=== PATIENT | female | born 1945 | race Caucasian/White ===

== ENCOUNTER 2018-05-21 05:40 | Inpatient (IN) | payer BC, MEDICARE ==
[~2018-05-21] VITALS: Ht 157.5 cm; Wt 51.9 kg
[~2018-05-21 05:40] MED LIST: BACTRIM DS TAB1 EACH PO; CALTRATE 600 +1 EAC1 PO; DAILY MULTIPLE1 EACH PO; IRON18 MG PO; LOSARTAN POTASS50 MG PO; OMEPRAZOLE20 MG PO; PROLIA60 MG/1 ML SUB-Q; SIMVASTATIN40 MG PO
--- NOTE | 2018-05-21 09:59 | NUR ---
05/21/18 0958 Caryl Tan 0985-PATIENT ARRIVED TO PACU ON 6L MASK O2 SAT 100% ORAL AIRWAY TAKEN OUT BY BRADEN BOSS AND REPLACED TO HELP MAINTAIN AIRWAY. RR EVEN. INCISION TO ABDOMEN CDI LIEN DRAIN IN PLACE 0955-PATIENT REACTIVE TO VOICE OPENING EYES ORAL AIRWAY REMOVED. DENTURES PUT IN MOUTH. DENIES PAIN OR NAUSEA. DOZING TO SLEEP.
--- NOTE | 2018-05-21 10:04 | NUR ---
PT IS ALERT, ORIENTED AND SUPPORTED BY FAMILY. SHE IS A PLEASANT LADY, THAT SEEMS PREPARED, AND HAD FEW QUESTIONS. PT DID REQUEST PRAYER, WILL FOLLOW NEEDED.
[2018-05-21] MEDS ORDERED: IBUPROFEN600 MG PO (10:15)
[2018-05-21] MEDS ORDERED: MAPAP325 MG PO (10:16)
[2018-05-21] MEDS ORDERED: HYDROCODON-ACE1 EA10 PO (10:17)
--- NOTE | 2018-05-21 10:53 | NUR ---
ICED WATER AND JELLO GIVEN. PT TAKES SIPS OF WATER AND TOLERATES THAT WELL.
--- NOTE | 2018-05-21 11:54 | NUR ---
PT REPORTS VERY LITTLE IMPROVEMENT AFTER PRN. SECOND PRN GIVEN. PT DENIES NAUSEA.
--- NOTE | 2018-05-21 13:07 | NUR ---
PT UP TO BR W/RN STANDBY. PT AMBULATES CAUTIOUSLY. PT DENIES DIZZINESS. PT VOIDS 300 ML CLEAR YELLOW URINE AND IS BACK TO BED. PT IS QUITE PAINFUL GETTING BACK INTO BED. LIEN DRAIN EMPTIED FOR 10 ML SEROUS DRAINAGE. SCDS IN PLACE. IV PRN GIVEN FOR PAIN.
--- NOTE | 2018-05-21 13:48 | NUR ---
MORE ICED WATER GIVEN.
--- NOTE | 2018-05-21 15:15 | NUR ---
PT ARRIVED AT 1450 ON FLOOR. PT SO FAR HAS TOLERATED LIQUIDS WELL, PT IS AAO X4. PT AMBULATED TO BATHROOM. ALL LOBES ARE CLEAR, PT HAS A SLIGHT HEART MURMUR. ABD SOUNDS ARE PRESENT, PT IS PASSING GAS. PT STATED THAT ABD IS MODERATELY DISTENDED. ON EDEMA NOTED. NO NEW CONCERNS AT THIS TIME.
--- NOTE | 2018-05-21 16:19 | NUR ---
MED REC COMPLETE
--- NOTE | 2018-05-21 17:15 | NUR ---
PT OVERALL IS DOING WELL. PAIN IS WELL CONTROLLED UNTIL PT COUGHS. PT IS TOLERATING CRACKERS WELL. NO NEW CONCERNS AT THIS TIME.
--- NOTE | 2018-05-21 19:51 | NUR ---
HELPED PT GET TO HER BED FROM THE BATHROOM. PT VOMITED ON THE WAY BACK TO HER BED. HELPED PT GET CLEANED UP AND LET HER RN CHIKI KNOW. BEDSIDE TABLE AND CALL LIGHT WITHIN REACH.
--- NOTE | 2018-05-21 19:53 | NUR ---
PATIENT JUST HAD AN EPISODE OF NAUSEA AND VOMITING AFTER AMBULATING TO THE BATHROOM AND BACK TO BED. 4 MG IV ZOFRAN GIVEN AND 4 MF IV MORPINE FOR EPIGASTRIC AREA SURGICAL PAIN OF 6/10. PATIENT'S NAUSEA IMPROVED AT THIS TIME WILL RE-EVELAUATE PAIN.
--- NOTE | 2018-05-21 20:57 | NUR ---
PATIENT RESTING QUIETLY AND HAS NO MORE NAUSEA. PATIENT'S PAIN IS 4/10 AT THIS TIME AND DOES NOT WANT ANY MORE PAIN MEDICATION AT THIS TIME. PATIENT'S CALL LIGHT IS IN REACH AND WILL CALL IF SHE NEEDS ANYTHING.
--- NOTE | 2018-05-21 22:00 | OR ---
[facility] [address], [place] [address] Signed DATE OF OPERATION: 05/21/2018 SURGEON: Jinny Rios MD PREOPERATIVE DIAGNOSES: 1. Incisional hernia, upper abdomen. 2. Persistent anemia, history of duodenal ulcer. 3. History of complex polyp excised from colon. POSTOPERATIVE DIAGNOSES: 1. Incisional hernia with fascial defect, 6 cm. 2. Normal upper endoscopy. PROCEDURES: 1. Upper endoscopy. 2. Incisional hernia repair. 3. Implantation of Prolene mesh underlay technique (properitoneal space). ANESTHESIA: General endotracheal, Lesley Karlos, CREATIVE ASSISTANT and local 30 mL of 0.25% Marcaine with epinephrine. INDICATION: This 72-year-old white woman is a patient of Dr. Urbano Lozano in [place]. She underwent a peptic ulcer operation at [facility] in the past for a perforation several years ago. This resulted in an incisional hernia. She is known to me from the recent past of having undergone colonoscopy, found to have a complex polyp of the left colon which was excised and was benign. She has had chronic anemia for reasons that are unclear. She has no overt blood per rectum or hematemesis. No abdominal pain other than the incisional hernia itself. She is admitted at this time to undergo repair of the incisional hernia, but additionally I have reviewed with her daughter who attends to her that upper endoscopy additionally performed to assess for peptic disease, possibly accounting for chronic anemia. The risks of bleeding, infection, and perforation related to that procedure as well as the risks of bleeding, infection, and recurrence related to hernia were reviewed in detail and well understood. FINDINGS: Electronically Signed By: JINNY RIOS MD 05/21/18 7786 PATIENT NAME: FABIO JOSE OPERATIVE REPORT DATE OF : 45 REPORT #: [id number] PHYSICIAN: JINNY RIOS MD PCP: Urbano Lozano DO REPORT IS CONFIDENTIAL AND NOT TO BE RELEASED WITHOUT AUTHORIZATION [facility] [address] [place], [place] [address] Signed Incisional hernia defect was approximately 6 cm. There was no sign of incarcerated viscus. Internal examination showed no sign of ascites or carcinomatosis. Prolene mesh was implanted in the properitoneal space with the peritoneum as a biologic barrier to intraabdominal viscera. Interrupted Prolene sutures were used with Prolene pledgets providing secure repair. A drain was placed. On upper endoscopy, she showed no sign of esophageal gastric or duodenal pathology to account for anemia. DESCRIPTION OF PROCEDURE: The patient was brought to the operating room and given a general endotracheal anesthetic. Preoperative antibiotic Ancef was given. Mindful of her anemia which was more prominent on her preoperative labs with hematocrit of 26.7 with chronic anemia, it occurred to me that perhaps upper endoscopy might be beneficial, given her original incision for development of the incisional hernia was related to peptic disease (perforated ulcer). Review of records had shown no upper endoscopy by me or in our institution and I did speak with her daughter since the patient was anesthetized and reviewed the possible benefit of upper endoscopy at this time. She agreed fully. As the endoscopy equipment was not fully functional at the outset of the anesthetic, we proceeded directly to operative repair of the hernia. The abdomen was prepared with a chlorhexidine solution and draped sterilely. An incision was made in the epigastric area directly over the hernia defect area. Dissection carried through the subcutaneous tissue with blunt electrocautery dissection. Well-formed hernia sac was noted. There was no sign of incarcerated viscus. The surrounding soft tissue was freed with blunt and electrocautery dissection. The fascial defect measured approximately 6 cm in diameter. The hernia sac was freed from the overlying fascia with blunt electrocautery dissection. In the upper portion, the posterior fascial layer was well fused with hernia sac and could not be distinguished from it. Therefore, the posterior fascial layer was as well. Ultimately, a preperitoneal space was developed at least 4 cm circumferential to the defect itself. The defects in the hernia sac were secured with 2-0 Vicryl suture. Internal examination showed no sign of ascites or carcinomatosis. By this point, the hernia sac was in continuity and provided good biologic barrier of implanted mesh from the intraabdominal viscera. A 6 inch x 6 inch piece of Prolene mesh was cut to an elliptical configuration and secured in the properitoneal space with interrupted 0 Prolene sutures with Prolene pledgets. Complete reapposition of the fascial layer was not possible, but the space was minimized. Through a separate stab incision on the right side, a 7 mm flat Dat drain was placed. Pelon's layer was reapproximated with interrupted 2-0 Vicryl and skin Electronically Signed By: JINNY RIOS MD 05/21/18 0229 PATIENT NAME: FABIO JOSE OPERATIVE REPORT DATE OF : 45 REPORT #: [id number] PHYSICIAN: JINNY RIOS MD PCP: Urbano Lozano DO REPORT IS CONFIDENTIAL AND NOT TO BE RELEASED WITHOUT AUTHORIZATION [address] [address] Signed closed with running subcuticular 3-0 Vicryl. Steri-Strips were applied as was a Mepilex silver sponge dressing and an OpSite. At this point, additional endoscopy equipment was obtained and a bite block was placed while the patient was in the supine position. The Olympus video upper endoscope was passed in the hypopharynx and into the esophagus without problem. The esophagus, stomach, and duodenum were thoroughly examined showing no evidence of ulceration, neoplasm, inflammation or other abnormality. Retroflexed view was normal as well. The scope was withdrawn carefully through the esophagus showing no sign of varices or other abnormality. The patient was ultimately extubated and transferred to recovery room in good condition having suffered no complication. Jinny Rios MD JM/MODL /[id number] cc: Urbano Lozano DO Copies: Urbano Lozano DO ~ Electronically Signed By: JINNY RIOS MD 05/21/18 2200 PATIENT NAME: FABIO JOSE OPERATIVE REPORT DATE OF : 45 REPORT #: [id number] PHYSICIAN: JINNY RIOS MD PCP: Urbano Lozano DO REPORT IS CONFIDENTIAL AND NOT TO BE RELEASED WITHOUT AUTHORIZATION
--- NOTE | 2018-05-21 22:43 | NUR ---
PATIENT NOW C/O 6/10 PAIN AND WAS GIVEN 6MG OF IV MS. NO NAUSEA AT THIS TIME. WILL RE-EVALUATE PAIN. PATIENT'S CALL LIGHT IN REACH. PATIENT FEELING HUNGRY AND REQUESTED SOME VANILLA PUDDING WHICH WAS GIVEN.
--- NOTE | 2018-05-22 00:44 | NUR ---
PATIENT STARTED TO HAVE NAUSEA AND VOMITING AGAIN AFTER GETTING UP TO THE RESTROOM AND THIS INCREASED HER PAIN BACK TO 6/10. 4MG IV ZOFRAN GIVEN AND 6MG IV MORPHINE GIVEN. PATIENT'S NAUSEA IS GONE AND WILL HAVE TO REASSESS PAIN. CALL LIGHT IN REACH.
--- NOTE | 2018-05-22 02:09 | NUR ---
VITALS AND I&OS DONE AND CHARTED. FRESH WATER GIVEN. BEDSIDE TABLE AND CALL LIGHT WITHIN REACH.
--- NOTE | 2018-05-22 03:28 | NUR ---
PATIENT STARTED HAVING 6/10 ABD/EPIGASTRIC AREA PAIN AGAIN AND WAS GIVEN 6MG IV MS. NEW IV BAG WAS HUNG AND RATE OF LR CONTINUES AT 85MLS AN. IV FLUSHES WELL AND IS WNL. ABD/EPIGASTRIC DRESSINGS ARE CDI. LIEN DRAIN WAS DRAINED FOR 75MLS. PATIENT SAYS SHE HAS SLEPT INTERMITTENTLY. CALL LIGHT IN REACH.
--- NOTE | 2018-05-22 04:12 | NUR ---
PATIENT RESTING QUIETLY, EYES CLOSED, RESPIRATIONS EVEN AND REGULAR, PATIENT REMAINS ON 2L/NC AND IS AT 98% WITH A HR ON THE MONITOR OF 68. CALL LIGHT IN REACH. PATIENT SHOWING NO SIGNS OF DISCOMFORT AT THIS TIME.
--- NOTE | 2018-05-22 06:27 | NUR ---
VITALS AND I&OS DONE AND CHARTED. BEDSIDE TABLE AND CALL LIGHT WITHIN REACH.
--- NOTE | 2018-05-22 06:37 | NUR ---
PATIENT MEDICATED X6 TONIGHT WITH IV MORPHINE WHICH CONTROLS HER PAIN FAIRLY WELL UNTIL THE NEXT DOSE IS NEEDED. PATIENT HAD 3 EPISODES OF NAUSEA AND VOMITING THIS SHIFT AND TWICE THIS WAS RELIEVED WITH 4MG IV ZOFRAN. THE LATEST EPISODE OF N/V RESOLVED ON IT'S OWN. EACH EPISODE COINCIDED WITH PATIENT GETTING UP TO USE THE BATHROOM. PATIENT'S ABD/EPIGASTRIC AREA DRESSING IS CDI. LIEN DRAIN PUTTING OUT SANGUINOUS DRAINAGE. PATIENT IS PASSING GAS AND BOWEL TONES ARE PRESENT. LUNGS ARE CLEAR. IV CONTINUES TO INFUSE LR AT 85MLS/HR AND SITE IS WITHIN NORMAL LIMITS.
--- NOTE | 2018-05-22 08:00 | NUR ---
RECEIVED REPORT AT 0700, FOUND PT IN BED SLEEPING. PT HAD N/V AND LOW URINE OUTPUT OVERNIGHT. WILL CONTINUE TO MONITOR FOR NOW.
--- NOTE | 2018-05-22 08:35 | NUR ---
Assited REJI Angelo in pulling patient up in bed and setting her up for breakfast. Patient became very nauseas and was unable to eat. Patient sat for several minutes with emesis bag before attempting to walk with this NATIONAL COVERAGE SPECIALIST to br. Patient will use call light when ready
--- NOTE | 2018-05-22 09:12 | NUR ---
ASSTED PATIENT BACK TO BED. PATIENT HAD 2 EPISODES OF VOMITING. @200 MIL. ALSO 200 URINE OUTPUT. PATIENT HAS VERY STRONG TREMOR EPISODES WELL. THIS SAND BOBBER HAD TO HOLD HER MOUTH RINSE CUP STEADY SHE USED IT. [facility]
--- NOTE | 2018-05-22 10:00 | NUR ---
AT 924 PT WALKED TO BATHROOM, PT HAD SOME EMESIS PINK IN COLOR AGAIN. PT HOWEVER HAS NOT BEEN ABLE TO TOLERATE ANY FOOD. ABD IS NOW MODERATLY DISTENDED AND FIRMER THAN YESTERDAY. DRESSING IS C/D/I. PT IS BELCHING AND BOWEL TONES ARE NOW HYPOACTIVE. MD WINKLER WAS CALLED AT 924 AND I LEFT A MESSAGE. HE CALLED BACK AT 929 AND AN ORDER TO A KUB TOTAL X-RAY WAS GIVEN AND PT AT THIS TIME IS NPO. WILL AWAIT RESULTS. OTHERWISE NO NEW PROBLEMS NOTED.
--- NOTE | 2018-05-22 12:00 | NUR ---
PT AT THIS TIME IS DRINKING SOME VEGGIE BROTH. PAIN AND N/V ARE NOT AN ISSUE AT THIS TIME.
--- NOTE | 2018-05-22 13:45 | NUR ---
PATIENT SLEEPING, AWOKE UPON HEARING HER NAMES CALLED AT BEDSIDE. FAMILY MEMBER IN ROOM. PATIENT FINISHED CUP OF BROTH. VITALS AND I/OS CHARTED. CALL LIGHT IN REACH
--- NOTE | 2018-05-22 14:00 | NUR ---
PT OVERALL IS FEELING BETTER AT THIS TIME. EXECUTIVE VICE PRESIDENT AND CHIEF OPERATING OFFICER TO AMBULATE PT IN HALLWAY SHORTLY.
--- NOTE | 2018-05-22 14:29 | NUR ---
PT EXPRESS DISAPPOINTMENT WITH STILL BEING HERE. TRYING TO STAY POSITIVE. BUILDING UP SOME COURAGE TO MOVE FORWARD, IN SPITE OF SET BACKS. PT REQUESTED PRAYER, WILL FOLLOW NEEDED
--- NOTE | 2018-05-22 14:45 | NUR ---
PATIENT AMBULATED SEGOVIA TO NURSES STATION AND BACK TO ROOM WITH REJI LADD AND THIS GSE MECHANIC.
--- NOTE | 2018-05-22 15:11 | NUR ---
PT AMBULATED FROM ROOM TO NURSES STATION AND BACK. PT TOLERATED IT WELL. NON N/V AND PAIN IS TOLERABLE. PT IS BACK IN BED.
--- NOTE | 2018-05-22 17:01 | NUR ---
STAND BY ASSIST TO BR. PATIENT WILL CALL WHEN READY
--- NOTE | 2018-05-22 17:37 | NUR ---
AT START OF SHIFT PT HAD PAIN AND MUCH N/V. PT WAS ALSO NOT ABLE TO TAKE ANY PO FOODS AND LIQUIDS. ABD WAS MORE DISTENDED AND BOWEL TONES WERE HYPOACTIVE. MD RIOS WAS CALLED AND KBU WAS DONE. GAS WAS NOTED ON X-RAY. PT ALSO WALKED IN THE HALLWAY AND DID WELL. BOWEL TONES AT THIS TIME ARE NORMALLY ACTIVE EXCEPT IN RUQ. THERE THEY ARE STILL HYPOACTIVE. PT OVERALL IS FEELING MUCH BETTER AT THIS TIME.
--- NOTE | 2018-05-22 19:45 | NUR ---
PATIENT RESTING QUIETLY ON HER RIGHT SIDE AT THIS TIME. RECEIVED SHIFT REPORT FROM DAY RN. PATIENT'S RESPIRATION REGULAR AND EVEN AND CALL LIGHT IN REACH.
--- NOTE | 2018-05-22 20:50 | NUR ---
VITALS AND I&OS DONE AND CHARTED. HELPED PT TO THE BATHROOM AND BACK TO BED. BEDSIDE TABLE AND CALL LIGHT WITHIN REACH.
--- NOTE | 2018-05-22 21:30 | NUR ---
PATIENT ON 2L/NC FOR DESATURATING WHEN SHE GOES TO SLEEP. PATIENT HAS NOT BEEN HAVING THE NAUSEA SHE WAS HAVING EARLIER IN THE DAY, BUT CONTINUES TO HAVE ABD/EPIGASTRIC AREA PAIN 6/10 AND A HEADACHE. 6MG IV MS GIVEN. PATIENT'S BOWEL TONES ACTIVE, BUT HYPOACTIVE IN THE RUQ. LUNGS CLEAR. PATIENT WATCHING TV AND CALL LIGHT IS IN REACH. ABD DRESSING AND LIEN SITE CDI.
--- NOTE | 2018-05-22 21:52 | NUR ---
CHARGE NURSE ROUNDING NOTE: PT IN BED, NO C/O PAIN, IVF INFUSING W/O PROBLEMS FLUIDS AND CALL LIGHT WITHING HAND REACH, NO C/O N/V
--- NOTE | 2018-05-22 23:40 | NUR ---
PATIENT JUST UP TO THE BATHROOM WITH 1PSBA. PATIENT BACK TO BED THIS TIME AND PAIN WAS UNDER CONTROL AT 3/10 AND NO NAUSEA THIS TIME. PATIENT IS GOING TO TRY AND GET SOME MORE SLEEP. CALL LIGHT IN REACH.
--- NOTE | 2018-05-23 00:41 | NUR ---
PATIENT RESTING QUIETLY SUPINE IN BED, EYES CLOSED RESPIRATIONS EVEN AND REGULAR, 02 SATS ARE 99% ON 2LNC WITH A HR=70 ON THE PULSE OX MONITOR. CALL LIGHT IN REACH.
--- NOTE | 2018-05-23 02:24 | NUR ---
PATIENT UP TO THE BATHROOM AND VOIDED 400MLS. PATIENT FEELS LIKE SHE NEEDS TO HAVE A BM, BUT NO RESULT FROM MOM SO FAR. PATIENT'S ABD DOES LOOK A BIT MORE DISTENDED AND PATIENT THINKS IT IS WELL BOWEL TONES REMAIN ACTIVE WITH THE RUQ BEING HYPOACTIVE. PATIENT IS EXPERIANCING A SORE THROAT WELL. ABD/EPIGASTRIC PAIN 6/10 ON RETURNING TO BED AND 6MG IV MS GIVEN. CEPACOL ROOSEVELT. ALSO ORDERED FOR SCRATCHY THROAT. PATIENT IS GOING TO TRY AND GET SOME SLEEP. CALL LIGHT IN REACH.
--- NOTE | 2018-05-23 05:38 | NUR ---
PATIENT HAS BEEN UP TO THE RESTROOM MULTIPLE TIMES THIS SHIFT TO USE THE BATHROOM AND AMBULATES FINE WITH ONE PERSON STANDING BY. LR STILL RUNNING AT 85MLS/HR. LUNGS CLEAR, BOWEL TONES ACTIVE, BUT HYPOACTIVE IN THE RUQ. NO BM THIS SHIFT AND ABD IS MORE DISTENDED NOW THAN AT THE BEGINING OF THE SHIFT. PATIENT HAS ONLY HAD TO HAVE IV MORPHINE A COUPLE TIMES THIS SHIFT. VS ARE STABLE. ABD DRESSING CLEAN DRY AND INTACT. PATIENT HAD NO NAUSEA OR VOMITING ON THIS SHIFT.
--- NOTE | 2018-05-23 08:04 | NUR ---
patient report received from Fareed MENDOZA, she is resting with eyes closed. She woke easily to name and sat up in bed for breakfast. patient has no c/o nausea and pain level is currently at a 5 with movement. patient requesting pain medication at this time. patient placed on ra at this time.
--- NOTE | 2018-05-23 08:08 | NUR ---
PATIENT GIVEN 1 NORCO PO FOR C/O 5/10 ABDOMINAL PAIN, DRESSING TO ABDOMEN IS CDI WITH MEPILEX AND OPSITE, PATIENT INSTRUCTED ON HOW TO USE AN IS AT THIS TIME AND WILL AMBULATE AFTER FINISHING BREAKFAST.
--- NOTE | 2018-05-23 10:17 | NUR ---
pt was resting in bed with call light in reach, vitals taken and pt is now walking in hallway with Nurse Esme.
--- NOTE | 2018-05-23 10:33 | NUR ---
IV IN THE RIGHT HAND INFILTRATED, IV DC'D TIP INTACT. DOCTOR BLANCA IN THE ROOM TO SEE THE PATIENT AT THIS TIME.
--- NOTE | 2018-05-23 10:44 | NUR ---
#20 STARTED IN THE LEFT FOREARM AT THIS TIME
--- NOTE | 2018-05-23 14:30 | NUR ---
PATIENT TAKEN TO CT SCAN FOR PICTURES OF ABDOMEN AND PELVIS
--- NOTE | 2018-05-23 14:50 | NUR ---
pt has returned from CT, she used the restroom, and returned to bed. pt is resting safely with call light in reach.
--- NOTE | 2018-05-23 17:17 | NUR ---
PATIENT ASSISTED UP TO THE BATHROOM, VOIDED CLEAR YELLOW URINE, PATIENT IS STEADY ON HER FEET. SHE REMAINS NPO. CT RESULTS GIVEN TO DOCTOR RIOS AT THIS TIME.
--- NOTE | 2018-05-23 17:36 | NUR ---
pt is resting in bed safely with call light in reach and asked for swabs for mouth.
--- NOTE | 2018-05-23 19:28 | NUR ---
suppository placed at this time after patient voided clear yellow urine. patient steady on her feet.
--- NOTE | 2018-05-23 21:34 | NUR ---
IN BED, AWAKE, ALERT, NO C/O PAIN, NO N/V, NPO, CALL LIGHT WITHING HANDS REACH.
--- NOTE | 2018-05-23 22:00 | NUR ---
PATIENT HAD NO RESULTS FROM HER SUPPOSITORY. 2X 1500ML WARM SOAP WATER ENEMAS WERE GIVEN WITH RETURN OF A FAIR AMOUNT OF MUCUS, DARK BROWN FOUL SMELLING LIQUID, AND A FAIR AMOUNT OF SMALL FORMED PIECES OF DARK BROWN STOOL. PATIENT'S ABD IS FEELING BETTER. INFORMED AND HE GAVE AN ORDER FOR PATIENT TO BE STARTED BACK ON CLEAR LIQUIDS. PATIENT GIVEN NEW ICE WATER AND IS TRYING TO GO TO SLEEP. CALL LIGHT IN REACH.
--- NOTE | 2018-05-23 22:48 | NUR ---
PATIENT HAD HER BED CHUK CHANGED AFTER HAVE A SMALL AMOUNT OF MUCUS IN THE BED FROM HER RECENT ENEMA. PATIENT SETTLING IN FOR THE NIGHT TO TRY AND GET SOME SLEEP. CALL LIGHT IN REACH.
--- NOTE | 2018-05-23 23:46 | NUR ---
PATIENT UP TO THE BATHROOM TO VOID AND THEN BACK TO BED AFTER VOIDING 600MLS AN THE BATHROOM, PATIENT HAS DRANK 100MLS OF WATER AND SAYS HER ABD FEELS MUCH BETTER. PATIENT GOING TO TRY AND GET SOME MORE SLEEP. CALL LIGHT IN REACH.
--- NOTE | 2018-05-24 00:54 | NUR ---
PATIENT RESTING QUIETLY ON HER LEFT SIDE, EYES CLOSED AND RESPIRATIONS EVEN AND REGULAR. CALL LIGHT IN REACH.
--- NOTE | 2018-05-24 02:21 | NUR ---
PATIENT USED HER CALL LIGHT AND WAS ESCOHRTED TO THE BATHROOM AND BACK TO BED. PATIENT HAS NEEDED NOTHING FOR PAIN AND HAS HAD NO NAUSEA. VOIDED 650 OF URINE, AND IS GOING TO TRY AND GET SOME MORE SLEEP. CALL LIGHT IN REACH.
--- NOTE | 2018-05-24 03:07 | NUR ---
PATIENT RESTING QUIETLY, EYES CLOSED, RESPIRATIONS EVEN AND REGULAR, POSITIONED ON HER RT SIDE. CALL LIGHT IS IN REACH.
--- NOTE | 2018-05-24 04:31 | NUR ---
PATIENT RESTING QUIETLY ON HER LEFT SIDE RESPIRATIONS REGULAR, EYES CLOSED, CALL LIGHT IS IN REACH.
--- NOTE | 2018-05-24 06:39 | NUR ---
PATIENT HAD 2 1500ML SOAP WATER ENEMAS AFTER NO RESULT WITH SUPPOSITORY. PATIETN HAD SOME FORMED STOOL RETURN WITH THESE ENEMAS. ABD NOT DISTENDED NOW AND PATIENT HAS BEEN MORE COMFORTABLE. RUQ STILL HYPOACTIVE WITH ACTIVEBOWEL TONES THE OTHER 3 QUADS. LUNGS CLEAR BUT ON 2 LITERS NC DUE TO DESATING WHEN ASLEEP. IV 85ML/HR LR AND IV WNL. ON CLEAR LIQUIDS AT THIS TIME AND TOLERATING THAT WELL. PATIENT WALKING TO THE BATHROOM WITH STRANDBY ASSIST. PATIENT SLEPT FAIRLY WELL AND HAD NO NEED FOR PAIN MEDICATION AND NO NAUSEA OR VOMITING THIS SHIFT. MINIMAL SEROSANGUINOUS DRAINAGE FROM LIEN AND DRESSING IS CDI.
--- NOTE | 2018-05-24 09:15 | NUR ---
PT AWAKE SITTING UP IN BED, FINISHED ALL OF CLEAR LIQUIDS ON TRAY, FRANK WELL. PT DENIES NAUSEA OR ANY PAIN THIS AM. REPORTS STILL FEELING SLIGHTLY BLOATED BUT "GOOD" OTHERWISE. REPORTS POSITIVE FLATUS THIS AM. ABD DRESSED WITH MEPILEX AND OPSITE, CDI. LIEN DRAIN IN PLACE AND SECURE, SMALL AMOUNT OF SEROSANGUINOUS OUTPUT. PT SBA TO RESTROOM AND BACK TO BED. ALERT AND ORIENTED. CALL LIGHT WITHIN REACH.
--- NOTE | 2018-05-24 11:02 | NUR ---
pateint needed to use restroom took her to the bathroom, and helped her back to bed put back ion her SCD's
--- NOTE | 2018-05-24 12:10 | NUR ---
PT FRANK CLEAR TRAY FOR LUNCH. SBA TO RESTROOM. PT DENIES PAIN OR NAUSEA. DENIES NEEDS OR CONCERNS. CALL LIGHT WITHIN REACH.
--- NOTE | 2018-05-24 13:20 | NUR ---
DRESSINGS AND LIEN DRAIN REMOVED BY DR. RIOS. STERI STRIPS IN PLACE ON HORIZONTAL UPPER ABD INCISION. NO DRAINAGE OR REDNESS NOTED, INCISION WELL APPROXIMATED. ORDERS TO ADVANCE TO FULL LIQUID. PT DENIES PAIN OR OTHER CONCERNS AT THIS TIME. CALL LIGHT WITHIN REACH.
--- NOTE | 2018-05-24 15:20 | NUR ---
PT SITTING UP IN BED WATCHING TV. SBA TO RESTROOM AND BACK. DENIES NEEDS OR CONCERNS. CALL LIGHT WITHIN REACH.
--- NOTE | 2018-05-24 17:15 | NUR ---
PT HAD FULL LIQUIDS FOR DINNER, FRANK WELL. DENIES NAUSEA OR OTHER CONCERNS.
--- NOTE | 2018-05-24 22:56 | NUR ---
PT ASSESSMENT COMPLETE. PT DENIES PAIN, NAUSEA, SOB. STERISTRIPS TO ABD D/I. SCAB TO RLQ. BT'S HYPERACTIVE. ENEMA ADMINISTERED ORDERED. CLEAR WATER WITH MINIMAL SMALL SIZED CHUNKS OF STOOL RETURNED. PT DENIES OTHER NEEDS. ORIENTED TO CALL LIGHT SYSTEM. PT AGREES TO USE FOR NEEDS. CALL LIGHT WITHIN REACH.
--- NOTE | 2018-05-24 23:11 | NUR ---
CHARGE NURSE ERIK NOTE: PT IN BED, RESTING, EYES COSED, ROOM AIR NO C/O PAIN, FLUIDS AND CALL LIGHT WITHING HANDS REACH
--- NOTE | 2018-05-24 23:42 | NUR ---
BEDSIDE REPORT RECEIVED FROM OFFGOING RN. PT RESTING IN BED, APPEARS TO BE SLEEPING. PT DOES NOT WAKE WHILE INFORMATION SERVICES ASSISTANT AND OTHER RN IN DOORWAY. CALL LIGHT WITHIN PT REACH.
--- NOTE | 2018-05-25 00:30 | NUR ---
PT UP TO USE BEDSIDE COMMODE. STATES THAT SHE WOULD LIKE TO SIT ON COMMODE FOR AWHILE. PT AGREES TO USE CALL LIGHT WHEN SHE IS FINISHED. CALL LIGHT IN PT'S HAND. PT DENIES FURTHER NEEDS AT THIS TIME.
--- NOTE | 2018-05-25 04:59 | NUR ---
PT ASSESSMENT COMPLETE. RESTING IN BED WITH EYES CLOSED, WAKES EASILY. PT DENIES PAIN, NAUSEA, OR SOB AT THIS TIME. BT'S ACTIVE, ABD TENDER TO TOUCH. STERI STRIPS TO INCISION INTACT, DRY. PT DENIES NEEDS AT THIS TIME. CALL LIGHT WITHIN REACH.
--- NOTE | 2018-05-25 06:25 | NUR ---
PT RESTING IN BED WITH EYES CLOSED.WAKES EASILY. PT REQUESTS TO USE THE BATHROOM, ASSISTED 1 PA. PT TOLERATED WELL. REPORTS INCREASED ABD PAIN WITH MOVEMENT. RATES 3/10. PT ALSO REPORTS HEADACHE, RATES 5/10. PRN TYLENOL TO BE ADMINISTERED PT DENIES OTHER NEEDS AT THIS TIME. CALL LIGHT WITHIN REACH.
--- NOTE | 2018-05-25 08:30 | NUR ---
PT SITTING UP IN BED EATING FULL LIQUID BREAKFAST, FRANK WELL. PT DENIES PAIN OR NAUSEA THIS AM. STERI STRIPS IN PLACE, INCISIONS WELL APPROXIMATED, CLEAN AND DRY. ACTIVE BOWEL TONES, PT REPORTS POSITIVE FLATUS. IV INFUSING WNL. ALERT AND ORIENTED. CALL LIGHT WITHIN REACH.
--- NOTE | 2018-05-25 10:00 | NUR ---
PATIENT WOULD LIKE TO SHOWER. SHOWER SET UP FOR USE. RN NOTIFIED TO SL PATIENTS IV SITE.
--- NOTE | 2018-05-25 10:15 | NUR ---
PT SL AND SET UP FOR SHOWER. PT SHOWERING INDEPENDENTLY. FAMILY PRESENT IN ROOM.
--- NOTE | 2018-05-25 10:20 | NUR ---
CALLED DAUGHTER DARREN PER ORDER CALLED TO UPDATE ON PLANS FOR DISCHARGE. DAUGHTER DID NOT ANSWER. LEFT MESSAGE " RN AT [facility], CALLING TO DISCUSSED PLANS TO DISCHARGE, PLEASE GIVE UP A CALL BACK AT [phone], THANK YOU"
--- NOTE | 2018-05-25 10:45 | NUR ---
PT SHOWERED AND DRESSED INDPENDENTLY. NOW AMB HALLWAY WITH FAMILY, FRANK WELL. PT DOES NOT REQUIRE ANY AMBULATORY ASSISTANCE.
--- NOTE | 2018-05-25 12:30 | NUR ---
PT HAD CHICKEN AND SALAD FOR LUNCH. FRANK WELL SO FAR. DENIES PAIN OR NAUSEA. FAMILY AT BEDSIDE. CALL LIGHT WITHIN REACH.
--- NOTE | 2018-05-25 14:35 | NUR ---
PT DRESSED AND SITTING IN CHAIR-ALERT AND ORIENTED. SHE IS READY FOR DC, HER FAMILY WITH HER WELL. THANKED ME FOR VISITING, EXTENDED A BLESSING AND WILL FOLLOW NEEDED
--- NOTE | 2018-05-25 14:50 | NUR ---
PT AMB HALLWAY WITH FAMILY, FRANK WELL. PT BACK TO BED AT THIS TIME. DENIES NEEDS OR CONCERNS. CALL LIGHT WITHIN REACH.
[2018-05-25] MEDS ORDERED: PEPCID20 MG PO (15:26)
--- NOTE | 2018-05-27 10:38 | DS ---
[facility] [address], [place] [address] Signed ADMISSION DATE: 05/21/2018 DISCHARGE DATE: 05/25/2018 REASON FOR ADMISSION: A 72-year-old white woman, who is a patient of Dr. Urbano Lozano, in [place], underwent a peptic ulcer operation at [facility] in the past for perforated duodenal ulcer a number of years ago. This resulted in incisional hernia. She is known to me from the recent past time and undergone colonoscopy and found to have a complex polyp of the left colon which was excised and which was benign. She has had chronic anemia for uncertain reasons for quite some time. She has had no overt blood per rectum, hematemesis, or other issue. She is admitted at this time to undergo repair of an incisional hernia from her prior operation. PERTINENT PHYSICAL EXAMINATION: GENERAL: Pleasant white woman, looks to be in no acute distress. Trachea is midline. CHEST: Clear. HEART: Regular without murmur. ABDOMEN: Flat and soft. There is a midline hernia cephalad to the umbilicus in the previous upper midline incision. There is no palpable mass. EXTREMITIES: Show no clubbing, cyanosis, or edema. HOSPITAL COURSE: The patient underwent incisional hernia repair of the upper abdomen. In addition, she underwent upper endoscopy as she was noted to be anemic with a hematocrit of 27. The upper endoscopy is normal. Implantation of Prolene mesh in an Underlay technique was undertaken and a drain was placed as well. Postoperatively, the patient was deemed really too frail to send home, and with underlying pain. On that basis, she was admitted. Her pain was not that easy to control initially and she clearly needs to be admitted at minimum for pain control. Parenteral opiates were given as were oral medications, Motrin and Tylenol. The patient then had rather significant abdominal distention. She had some nausea and vomiting as well. Abdominal KUB showed distended loops of colon. No sign of small bowel obstruction proper. Her opiate medication was discontinued. She was started on intravenous Toradol. She had increased distention; on that basis, underwent a CT scan of the abdomen to assess for some failure of the incisional hernia repair. This was on May 23, 2018. There was no evidence whatsoever of hernia repair or small bowel obstruction, only distended colon with air and some stool. Return-flow enemas were initiated as were oral agents including milk of magnesia. Electronically Signed By: JINNY RIOS MD 05/27/18 1038 PATIENT NAME: FABIO JOSE DISCHARGE SUMMARY DATE OF : 45 REPORT #: [id number] PHYSICIAN: JINNY RIOS MD PCP: Urbano Lozano DO REPORT IS CONFIDENTIAL AND NOT TO BE RELEASED WITHOUT AUTHORIZATION [facility] [address] [place] [id number] Signed The patient had serial abdominal examinations undertaken and clinical examination. It showed decreasing distention with withdrawal of opiate medication. In due course, her abdominal x-ray looked normal and her abdominal distention clinically resolved. She was found to be slightly hypomagnesemic for which she was treated one time with supplemental magnesium, which was curative to her hypomagnesemia. By the day of discharge, she is ambulating with assistance. The drain that was placed at operation has been removed due to scant output. Abdomen is soft and although somewhat more distended than preoperatively, but not markedly so. There was no evidence of colonic or small bowel obstruction on abdominal x-ray at discharge. In followup, she will avoid any opiate medication. She will use only Motrin and Tylenol. She should lift no more than 10 pounds for the next month. She should walk on a daily basis. Steri-Strips are in place and will remain so. She will follow up with me in approximately a month. DISCHARGE MEDICATIONS: Will include: 1. Ibuprofen 600 mg p.o. q.6 hours p.r.n. pain. 2. Tylenol 325 mg-650 mg p.o. q.6 hours as needed for pain. 3. She will resume losartan 50 mg p.o. daily. 4. Simvastatin 40 mg daily. 5. Iron tablets 18 mg daily. 6. Multivitamin one tablet p.o. daily. 7. Prolia 60 mg subcutaneously twice yearly. 8. Calcium carbonate. She will be taking Motrin on a more routine basis. We will initiate a PPI medication at time of discharge as well, which will be of short duration most likely. FOLLOWUP PLAN: She will see me in approximately a month, sooner if there are problems. DISCHARGE DIAGNOSES: 1. Incisional hernia status post repair May 22, 2018, including implantation of Prolene mesh in Underlay technique. 2. Concurrent upper endoscopy, showing no evidence of upper gastrointestinal lesion to account for anemia. 3. Postoperative colonic ileus, resolved with withdrawal medication and supportive measures. 4. Hypertension. Electronically Signed By: JINNY RIOS MD 05/27/18 1038 PATIENT NAME: FABIO JOSE DISCHARGE SUMMARY DATE OF : 45 REPORT #: [id number] PHYSICIAN: JINNY RIOS MD PCP: Urbano Lozano DO REPORT IS CONFIDENTIAL AND NOT TO BE RELEASED WITHOUT AUTHORIZATION [address] [place], [place] [address] Signed 5. Dyslipidemia. MD NATACHA Guerirer/JAZMINL /[id number] cc: Urbano Lozano DO Copies: Urbano Lozano DO ~ Electronically Signed By: JINNY RIOS MD 05/27/18 1038 PATIENT NAME: FABIO JOSE DISCHARGE SUMMARY DATE OF : 45 REPORT #: [id number] PHYSICIAN: JINNY RIOS MD PCP: Urbano Lozano DO REPORT IS CONFIDENTIAL AND NOT TO BE RELEASED WITHOUT AUTHORIZATION
== END 2018-05-25 16:40 | disposition home or self-care (01) | DRG 354 ==
LOC: DS 05:40 → MS 05:40 → DS 06:45 → MS 14:40 → DS 14:50 → MS 14:50
PROVIDERS: ADMIT Surgery
PROC: 0WUF0JZ Supplement Abdominal Wall with Synthetic Substitute, Open Approach (ICD-10-PCS; principal; 2018-05-21 06:45)
PROC: 0DJ08ZZ Inspection of Upper Intestinal Tract, Via Natural or Artificial Opening Endoscopic (ICD-10-PCS; 2018-05-21 06:45)
DX: K43.2 Incisional hernia without obstruction or gangrene (principal); K56.7 Ileus, unspecified; D64.9 Anemia, unspecified; T40.2X5A Adverse effect of other opioids, initial encounter; E83.42 Hypomagnesemia; I10 Essential (primary) hypertension; M81.0 Age-related osteoporosis without current pathological fracture; Y92.239 Unspecified place in hospital as the place of occurrence of the external cause; Z87.891 Personal history of nicotine dependence; Z79.899 Other long term (current) drug therapy; Z87.11 Personal history of peptic ulcer disease; Z86.010 Personal history of colon polyps
CPT/HCPCS: 00832; 36415; 74018; 74019; 74177; 80048; 80053; 82247; 82465; 83615; 83735; 84100; 84478; 84550; 85025; C1781; J0690; J1100; J1644; J2250; J2270; J2405; J2704; J3010; J3475; J7120; Q9967